=== PATIENT | female | born 1970 | race Caucasian/White ===

== ENCOUNTER 2016-12-02 08:37 | Day surgery (SDC) | payer MEDICAID ==
[~2016-12-02 08:37] MED LIST: EPINEPHRINE INJ 1 MG/10 ML DISP.SYRIN ONE; FLUMAZENIL INJ 0.5 MG/5 ML VIAL IV ONE; GLUCAGON,HUMAN RECOMB 1 MG INJ ONE; GLYCOPYRROLATE INJ 0.4 MG/2 ML VIAL ONE; LIDOCAINE 2% JELLY 30 ML TUBE ONE; NALOXONE HCL INJ/PF 0.4 MG/1 ML SDV ONE; ONDANSETRON HCL INJ/PF 4 MG/2 ML SDV ONE; PROMETHAZINE HCL INJ 25 MG/1 ML VIAL ONE
[2016-12-02] MEDS: MIDAZOLAM 2 MG/2 ML INJ ONE ×2 (09:25→09:35)
[2016-12-02] MEDS: FENTANYL CITRATE INJ/PF 100 MCG/2 ML AMPUL ONE ×2 (09:29→09:40)
[2016-12-02 10:57] LABS: ABSOLUTE BASOPHILS # (AUTO) 0.1 10^3/uL (0.0-0.2); ABSOLUTE EOSINOPHILS # (AUTO) 0.2 10^3/uL (0.0-0.6); ABSOLUTE LYMPHOCYTES (AUTO) 2.6 10^3/uL (0.5-4.7); ABSOLUTE MONOCYTES (AUTO) 0.6 10^3/uL (0.1-1.4); ABSOLUTE NEUT (AUTO) 4.8 10^3/uL (1.7-8.2); BASOPHILS % (AUTO) 0.9 % (0-2); EOSINOPHILS % (AUTO) 2.2 % (0-6); HEMATOCRIT 39.7 % (36.0-47.0); HEMOGLOBIN 13.4 g/dL (12.0-15.5); HGB HCT DIFFERENCE 0.5; LYMPHOCYTES % (AUTO) 31.5 % (13-45); MEAN CORPUSCULAR HEMOGLOBIN 31.3 pg (27.0-33.4); MEAN CORPUSCULAR HGB CONC 33.9 g/dL (32.0-36.0); MEAN CORPUSCULAR VOLUME 93 fl (80-97); MONOCYTES % (AUTO) 7.5 % (3-13); RED BLOOD COUNT 4.29 10^6/uL (3.72-5.28); RED CELL DISTRIBUTION WIDTH 13.8 % (11.5-14.0); SEGMENTED NEUTROPHILS % (AUTO) 57.9 % (42-78); WHITE BLOOD COUNT 8.2 10^3/uL (4.0-10.5)
[2016-12-02 11:02] VITALS: BP 112/56
--- NOTE | 2016-12-02 11:51 | DISCHARGE SUMMARY E ---
Discharge Summary NAME: AUSTIN MCCARTY : 1970 AGE: 46Y ADMITTED: 12/02/2016 DISCHARGED: 12/02/2016 PROCEDURES: Colonoscopy, biopsy. HISTORY: A 46-year-old female with rectal bleeding. The patient has had cholecystectomy, 3 C-sections, and hysterectomy. The patient underwent a colon exam showing diminutive rectosigmoid polyps, external hemorrhoids, redundant colon, and adequate prep. DISCHARGE PLAN: Awaiting biopsy. Hold aspirin. Consider followup colonoscopy 1 year with better prep. DICTATING PHYSICIAN: JESSICA CABRERA M.D. [id number] PHY#: [id number] ID: [id number] JOB#: [id number] ACCT: [id number] cc:JESSICA CABRERA M.D. >
--- NOTE | 2016-12-02 12:05 | OPERATIVE REPORT E ---
Operative Report NAME: AUSTIN MCCARTY : 1970 AGE: 46Y DATE OF SURGERY: 12/02/2016 ROOM: PREOPERATIVE DIAGNOSIS: Rectal bleeding. POSTOPERATIVE DIAGNOSES: 1. External hemorrhoids. 2. Small rectosigmoid diminutive polyps. 3. Redundant colon. 4. Inadequate prep. PROCEDURE: Colonoscopy. SURGEON: JESSICA CABRERA M.D. ANESTHESIA: Versed 4 mg and fentanyl 100 mcg. TISSUE REMOVED OR ALTERED: Biopsy rectosigmoid polyps. PROCEDURE: Rectal exam: External hemorrhoids. At the rectosigmoid junction, there is a small polyp, 2 mm, biopsy obtained. Rectal area shows a 2 mm polyp, biopsy obtained. Descending colon: Redundant, normal. Transverse colon: Redundant, normal. Ascending colon: Redundant, normal. Cecum: Wide, dilated, normal. Scope withdrawn cecum, ascending, transverse, descending, sigmoid, all the way to the rectum. CONCLUSION: Diminutive rectosigmoid polyps. Patient tolerated procedure well. Consider followup colonoscopy after 1-2 years with better prep. Awaiting histopathology. DICTATING PHYSICIAN: JESSICA CABRERA M.D. [id number] PHY#: [id number] ID: [id number] JOB#: [id number] ACCT: [id number] cc:JESSICA CABRERA M.D. >
== END 2016-12-02 11:30 | disposition home or self-care (01) ==
LOC: END 08:37
PROVIDERS: ATTEND Specialist
PROC: 0DBN8ZX Excision of Sigmoid Colon, Via Natural or Artificial Opening Endoscopic, Diagnostic (ICD-10-PCS; 2016-12-02)
PROC: 0DBP8ZX Excision of Rectum, Via Natural or Artificial Opening Endoscopic, Diagnostic (ICD-10-PCS; principal; 2016-12-02 09:00)
DX: D12.7 Benign neoplasm of rectosigmoid junction (principal); K64.4 Residual hemorrhoidal skin tags; Q43.8 Other specified congenital malformations of intestine; K62.5 Hemorrhage of anus and rectum; J44.9 Chronic obstructive pulmonary disease, unspecified; F17.210 Nicotine dependence, cigarettes, uncomplicated; I10 Essential (primary) hypertension; E78.00 Pure hypercholesterolemia, unspecified; G47.00 Insomnia, unspecified; Z79.52 Long term (current) use of systemic steroids
CPT/HCPCS: 45380; 36415; 85025; 88305 ×2; J2250; J3010; J1610; J3490 ×2; J2405; J0171; J2310; J2550

== ENCOUNTER → 2016-12-15 | Outpatient (CLI) | payer MEDICAID ==
[2016-12-20 07:18] LABS: DEAMIDATED GLIADIN IGA AB 3 units (0-19); DEAMIDATED GLIADIN IGG AB 3 units (0-19); IMMUNOGLOBULIN A 2 119 mg/dL (87-352); T-TRANSGLUTAMINASE (TTG) IGG <2 U/mL (0-5)
== END ==
LOC: OD 10:18
PROVIDERS: ATTEND Specialist
DX: K90.0 Celiac disease (principal)
CPT/HCPCS: 36415; 83520

== ENCOUNTER 2019-05-23 15:14 | Emergency (ER) | payer MEDICAID ==
[2019-05-23 15:20] VITALS: BP 159/82
[2019-05-23] MEDS ORDERED: KETOROLAC TROMETHAMINE INJ/PF 30 MG/1 ML SDV IV ONE (15:49)
[2019-05-23] MEDS ORDERED: ONDANSETRON HCL INJ/PF 4 MG/2 ML SDV IV ONE (15:53)
--- NOTE | 2019-05-23 15:54 | ER Document Report ---
ED Medical Screen (RME) - General Chief Complaint: Flank Pain Stated Complaint: FLANK PAIN Time Seen by Provider: 05/23/19 15:43 Primary Care Provider: JESSICA CABRERA MD [Primary Care Provider] - Follow up as needed TRAVEL OUTSIDE OF THE [place] IN LAST 30 DAYS: No - HPI Notes: 05/23/19 15:50 Patient is a 48-year-old female with a history of chronic back pain who presents complaining of right lateral low back/flank pain that began 3 days ago and has been worsening. Pain does not radiate. Pain is described as a sharp pain. Patient states that she was sent by urgent care for evaluation for possible kidney stone versus infection. She did have blood in her urine at the clinic today. She is able to eat and drink without difficulty. She is having normal bowel movements. Denies BRIGGS, fever, neck pain, URI, CP, SOB, Abd pain, dysuria, or rash. I have treated and performed a rapid initial assessment of this patient. A comprehensive ED assessment and evaluation of the patient, analysis of test results and completion of medical decision making process will be conducted by additional ED providers. PHYSICAL EXAMINATION: GENERAL: Well-appearing, well-nourished and in no acute distress. A&Ox4. Answers questions appropriately. LUNGS: Breath sounds clear to auscultation bilaterally and equal. No wheezes rales or rhonchi. HEART: Regular rate and rhythm without murmurs, rubs, gallops. ABDOMEN: Soft, nondistended abdomen. No guarding, no rebound. Normal bowel sounds present. + mild left CVA tenderness vs MS left low back. Grossly non- tender abd otherwise (limited in chair, however). - Related Data Allergies/Adverse Reactions: No Known Allergies Allergy (Verified 05/23/19 15:15) Past Medical History - Social History Frequency of alcohol use: None Drug Abuse: None - Past Medical History Cardiac Medical History: Reports: Hx Hypertension Denies: Hx Coronary Artery Disease, Hx Heart Attack Pulmonary Medical History: Reports: Hx Pneumonia Denies: Hx Asthma, Hx Bronchitis, Hx COPD Neurological Medical History: Denies: Hx Cerebrovascular Accident, Hx Seizures Renal/ Medical History: Denies: Hx Peritoneal Dialysis Musculoskeltal Medical History: Denies Hx Arthritis Past Surgical History: Reports: Hx Section - x3, Hx Cholecystectomy. Denies: Hx Hysterectomy, Hx Pacemaker Physical Exam - Vital signs Vitals: Temp Pulse Resp BP Pulse Ox 97.6 F 58 L 15 159/82 H 99 05/23/19 15:18 05/23/19 15:18 05/23/19 15:18 05/23/19 15:18 05/23/19 15:18 Course - Vital Signs Vital signs: Temp Pulse Resp BP Pulse Ox 97.6 F 58 L 15 159/82 H 99 05/23/19 15:18 05/23/19 15:18 05/23/19 15:18 05/23/19 15:18 05/23/19 15:18 Doctor's Discharge - Discharge Referrals: JESSICA CABRERA MD [Primary Care Provider] - Follow up as needed
[2019-05-23 16:32] LABS: ABSOLUTE BASOPHILS # (AUTO) 0.1 10^3/uL (0.0-0.2); ABSOLUTE EOSINOPHILS # (AUTO) 0.1 10^3/uL (0.0-0.6); ABSOLUTE NEUT (AUTO) 3.9 10^3/uL (1.7-8.2); EOSINOPHILS % (AUTO) 1.7 % (0-6); HEMOGLOBIN 14.7 g/dL (12.0-15.5); TOTAL CELLS COUNTED % (AUTO) 100 %
[2019-05-23 16:33] LABS: APPEARANCE,URINE CLEAR; BILIRUBIN,URINE NEGATIVE (NEGATIVE); COLOR,URINE YELLOW; GLUCOSE, URINE NEGATIVE (NEGATIVE); KETONES,URINE NEGATIVE (NEGATIVE); LEUKOCYTE ESTERASE,URINE NEGATIVE (NEGATIVE); NITRITE,URINE NEGATIVE (NEGATIVE); PROTEIN,URINE NEGATIVE (NEGATIVE); UROBILINOGEN,URINE NEGATIVE mg/dL (<2.0)
[2019-05-23 16:38] LABS: ABSOLUTE LYMPHOCYTES (AUTO) 3.9 10^3/uL (0.5-4.7); ABSOLUTE MONOCYTES (AUTO) 0.6 10^3/uL (0.1-1.4); BASOPHILS % (AUTO) 1.1 % (0-2); HEMATOCRIT 42.4 % (36.0-47.0); LYMPHOCYTES % (AUTO) 45.4 % (13-45); MEAN CORPUSCULAR HEMOGLOBIN 32.2 pg (27.0-33.4); MEAN CORPUSCULAR HGB CONC 34.7 g/dL (32.0-36.0); MEAN CORPUSCULAR VOLUME 93 fl (80-97); MONOCYTES % (AUTO) 6.5 % (3-13); PLATELET COUNT 241 10^3/uL (150-450); RED BLOOD COUNT 4.56 10^6/uL (3.72-5.28); RED CELL DISTRIBUTION WIDTH 14.1 % (11.5-14.0); SEGMENTED NEUTROPHILS % (AUTO) 45.3 % (42-78); WHITE BLOOD COUNT 8.5 10^3/uL (4.0-10.5)
[2019-05-23 16:45] LABS: ALANINE AMINOTRANSFERASE 17 U/L (9-52); ALBUMIN 4.7 g/dL (3.5-5.0); ALKALINE PHOSPHATASE 82 U/L (38-126); ANION GAP 7 (5-19); ASPARTATE AMINO TRANSFERASE 23 U/L (14-36); BILIRUBIN,DIRECT 0.2 mg/dL (0.0-0.4); BILIRUBIN,TOTAL 0.5 mg/dL (0.2-1.3); BLOOD UREA NITROGEN 10 mg/dL (7-20); CALCIUM 9.6 mg/dL (8.4-10.2); CARBON DIOXIDE 27 mmol/L (22-30); CHLORIDE 107 mmol/L (98-107); GLUCOSE 84 mg/dL (75-110); POTASSIUM 4.1 mmol/L (3.6-5.0); TOTAL PROTEIN 7.4 g/dL (6.3-8.2)
--- NOTE | 2019-05-23 16:56 | RADIOLOGY REPORT (SQ) ---
EXAM DESCRIPTION: CT ABD/PELVIS NO ORAL OR IV COMPLETED DATE/TIME: 05/23/2019 4:42 pm REASON FOR STUDY: Rt flank pain COMPARISON: None. TECHNIQUE: CT scan of the abdomen and pelvis performed without intravenous or oral contrast. Images reviewed with lung, soft tissue, and bone windows. Reconstructed coronal and sagittal MPR images revi ewed. All images stored on PACS. All CT scanners at this facility use dose modulation, iterative reconstruction, and/or weight based d osing when appropriate to reduce radiation dose to as low as reasonably achievable (ALARA). [facility]: Dose Right [facility]: CareDose [facility]: Dose Right [facility]: Teradose 4D [facility]: [employer] Technologies RADIATION DOSE: mGy. LIMITATIONS: None. FINDINGS: LOWER CHEST: No significant findings. No nodules or infiltrates. NON-CONTRASTED LIVER, SPLEEN, ADRENALS: Evaluation limited by lack of IV contrast. No identified sign ificant masses. PANCREAS: No masses. No peripancreatic inflammatory changes. GALLBLADDER: Surgically absent. RIGHT KIDNEY AND URETER: No suspicious masses. Assessment limited by lack of IV contrast. No signif icant calcifications. No hydronephrosis or hydroureter. LEFT KIDNEY AND URETER: No suspicious masses. Assessment limited by lack of IV contrast. No signifi cant calcifications. No hydronephrosis or hydroureter. AORTA AND RETROPERITONEUM: No aneurysm. No retroperitoneal masses or adenopathy. BOWEL AND PERITONEAL CAVITY: There is considerable retained stool. No obvious bowel mass or inflamma tion. APPENDIX: Normal. PELVIS, BLADDER, AND ABDOMINAL WALL:The urinary bladder is normal. There is a 6 mm calcification pos terolateral to the bladder on image 69. This does not appear to be in the ureter and certainly there is no evidence of ureteral obstruction. BONES: No significant findings. OTHER: No other significant finding. IMPRESSION: Constipation. No urinary pathology is identified. No acute finding in the abdomen or p francis. COMMENT: Quality ID # [id number]: Final reports with documentation of one or more dose reduction techniques (e.g., Automated exposure control, adjustment of the mA and/or kV according to patient size, use of iterative reconstruction technique) TECHNICAL DOCUMENTATION: JOB ID: [id number] [employer]- All Rights Reserved Reading location - IP/workstation name: [email or web address]
--- NOTE | 2019-05-23 19:02 | ER Document Report ---
ED General - General Chief Complaint: Flank Pain Stated Complaint: FLANK PAIN Time Seen by Provider: 05/23/19 15:43 Primary Care Provider: JESSICA CABRERA MD [EMERITUS] - Follow up as needed Information source: Patient TRAVEL OUTSIDE OF THE [place] IN LAST 30 DAYS: No - HPI Notes: Patient is a 48-year-old female with a history of chronic back pain who presents complaining of right lateral low back/flank pain that began 3 days ago and has been worsening. Pain does not radiate. Pain is described as a sharp pain. Patient states that she was sent by urgent care for evaluation for possible kidney stone versus infection. She did have blood in her urine at the clinic today. She is able to eat and drink without difficulty. She is having normal bowel movements. Denies BRIGGS, fever, neck pain, URI, CP, SOB, Abd pain, dysuria, or rash. No history of kidney stones. The patient denies any significant injury to the back but states pain is somewhat worse when she moves. The patient does report chronic constipation having a bowel movement once per week which is not unusual. The patient denies any fever or chills. No numbness or paresthesia or pain radiating down the leg. The patient describes some crampy abdominal pain intermittently. No current abdominal pain. Patient reports 20 months ago she had a colonoscopy and endoscopy which showed mild gastritis. The patient has a history of cholecystectomy and x3. Last menstrual period was a year and a half ago she is postmenopausal and has a history of a tubal ligation. - Related Data Allergies/Adverse Reactions: No Known Allergies Allergy (Verified 05/23/19 15:15) Past Medical History - General Information source: Patient - Social History Smoking Status: Current Every Day Smoker Frequency of alcohol use: None Drug Abuse: None Lives with: Family Family History: None Patient has suicidal ideation: No Patient has homicidal ideation: No - Past Medical History Cardiac Medical History: Reports: Hx Hypertension Denies: Hx Coronary Artery Disease, Hx Heart Attack Pulmonary Medical History: Reports: Hx Pneumonia Denies: Hx Asthma, Hx Bronchitis, Hx COPD Neurological Medical History: Denies: Hx Cerebrovascular Accident, Hx Seizures Renal/ Medical History: Denies: Hx Peritoneal Dialysis Musculoskeletal Medical History: Denies Hx Arthritis Past Surgical History: Reports: Hx Section - x3, Hx Cholecystectomy. Denies: Hx Hysterectomy, Hx Pacemaker Review of Systems - Review of Systems -: Yes All other systems reviewed and negative Physical Exam - Vital signs Vitals: Temp Pulse Resp BP Pulse Ox 97.6 F 58 L 15 159/82 H 99 05/23/19 15:18 05/23/19 15:18 05/23/19 15:18 05/23/19 15:18 05/23/19 15:18 - Notes Notes: PHYSICAL EXAMINATION: GENERAL: Well-appearing, well-nourished and in no acute distress. HEAD: Atraumatic, normocephalic. EYES: Pupils equal round and reactive to light, extraocular movements intact, conjunctiva are normal. ENT: Nares patent, oropharynx clear without exudates. Moist mucous membranes. NECK: Normal range of motion, supple without lymphadenopathy LUNGS: Breath sounds clear to auscultation bilaterally and equal. No wheezes rales or rhonchi. HEART: Regular rate and rhythm without murmurs ABDOMEN: Soft, nontender, nondistended abdomen. No guarding, no rebound. No masses appreciated. Lower midline surgical scar which is well-healed. Female : deferred Musculoskeletal: Normal range of motion, no pitting or edema. No cyanosis. Patient has pain appreciated through the right lower posterior pelvis region more paraspinal muscular region. There is no radiation down the leg. No actual pain over the CVA region bilaterally. No significant midline pain. No crepitance or erythema or or bony deformity. Pain seems worse with motion. NEUROLOGICAL: Cranial nerves grossly intact. Normal speech, normal gait. Normal sensory, motor exams. No saddle anesthesia or motor deficits. PSYCH: Normal mood, normal affect. SKIN: Warm, Dry, normal turgor, no rashes or lesions noted. Course - Re-evaluation Re-evalutation: 05/23/19 19:02 CT scan was negative for renal stone or other abnormality, but did show constipation. Patient had mild microscopic hematuria, but no evidence for infec tion. 05/23/19 19:03 Patient denied having any recent exercise or injury. Kidney function and lab s tudies were completely normal. I question if the back pain may be more musculoskeletal given the location and prior history. Hematuria is microscopic, but will need to be followed up, and patient is aware of this. Patient will also need something for constipation. 05/23/19 19:06 - Vital Signs Vital signs: Temp Pulse Resp BP Pulse Ox 97.6 F 58 L 15 159/82 H 99 05/23/19 15:18 05/23/19 15:18 05/23/19 15:18 05/23/19 15:18 05/23/19 15:18 - Laboratory Result Diagrams: 05/23/19 16:12 05/23/19 16:12 Laboratory results interpreted by me: 05/23/19 05/23/19 16:12 16:12 RDW 14.1 H Lymphocytes % 45.4 H Urine Blood LARGE H Discharge - Discharge Clinical Impression: Back strain Qualifiers: Encounter type: initial encounter Qualified Code(s): S39.012A - Strain of muscle, fascia and tendon of lower back, initial encounter Constipation Qualifiers: Constipation type: slow transit constipation Qualified Code(s): K59.01 - Slow transit constipation Hematuria Qualifiers: Hematuria type: unspecified type Qualified Code(s): R31.9 - Hematuria, unspecified Condition: Stable Disposition: HOME, SELF-CARE Instructions: Hematuria ([facility]), Constipation ([facility]), Low Back Pain ([facility]), Stretching Exercises for the Back ([facility]) Additional Instructions: You need a follow-up urinalysis to ensure that the microscopic hematuria has resolved. If not resolved, then you need follow-up with urology. Avoid anti- inflammatories, as they may cause hematuria. You may take Tylenol regularly as needed for pain. Take MiraLAX regularly as needed for constipation. Prescriptions: Cyclobenzaprine HCl [Flexeril 10 mg Tablet] 10 mg PO TIDP PRN #20 tab PRN Reason: Polyethylene Glycol 3350 [Miralax] 1 cap PO DAILY #527 powder Referrals: JESSICA CABRERA MD [EMERITUS] - Follow up in 1 month
[2019-05-23] MEDS ORDERED: MAGNESIUM HYDROXIDE SUSP 30 ML UDCUP PO ONE (19:14)
== END 2019-05-23 19:35 | disposition home or self-care (01) ==
LOC: ER 15:14
DX: S39.012A Strain of muscle, fascia and tendon of lower back, initial encounter (principal); K59.01 Slow transit constipation; R31.9 Hematuria, unspecified; X58.XXXA Exposure to other specified factors, initial encounter; G89.29 Other chronic pain; I10 Essential (primary) hypertension; Z90.49 Acquired absence of other specified parts of digestive tract
CPT/HCPCS: 99284; 96374; 96375; 36415; 83690; 85025; 80053; 81001; 74176; J1885; J3490; J2405

== ENCOUNTER 2019-05-25 08:58 | Emergency (ER) | payer MEDICAID ==
--- NOTE | 2019-05-25 09:44 | ER Document Report ---
ED Medical Screen (RME) - General Chief Complaint: Headache Stated Complaint: BLOOD PRESSURE PROBLEMS, HEADACHE Time Seen by Provider: 05/25/19 09:17 Mode of Arrival: Ambulatory Information source: Patient Notes: This 48-year-old female returns to the emergency department with multiple complaints. She gives history of recent UTI blood, hematuria, right flank pain. She was evaluated for this on May 23 by urgent care and in the ED. She was treated for constipation and Flexeril for flank pain. She reports since then she took mag citrate and gave herself an enema and last night she had a large bowel movements but her blood pressure went very high and it scared her. Patient reports that she had a headache at that time also. Headache has subsided somewhat. Patient has a history of constipation. Patient seems very anxious. Abdomen soft, no pain with palpation. I have greeted and performed a rapid initial assessment of this patient. A comprehensive ED assessment and evaluation of the patient, analysis of test results and completion of the medical decision making process will be conducted by additional ED providers. Dictation of this chart was performed using voice recognition software; therefore, there may be some unintended grammatical errors. TRAVEL OUTSIDE OF THE [place] IN LAST 30 DAYS: No - Related Data Allergies/Adverse Reactions: No Known Allergies Allergy (Verified 05/25/19 09:00) Past Medical History - Social History Chew tobacco use (# tins/day): No Frequency of alcohol use: None Drug Abuse: None - Past Medical History Cardiac Medical History: Reports: Hx Hypertension Denies: Hx Coronary Artery Disease, Hx Heart Attack Pulmonary Medical History: Reports: Hx Pneumonia Denies: Hx Asthma, Hx Bronchitis, Hx COPD Neurological Medical History: Denies: Hx Cerebrovascular Accident, Hx Seizures Renal/ Medical History: Denies: Hx Peritoneal Dialysis Musculoskeltal Medical History: Denies Hx Arthritis Past Surgical History: Reports: Hx Section - x3, Hx Cholecystectomy. Denies: Hx Hysterectomy, Hx Pacemaker Physical Exam - Vital signs Vitals: Temp Pulse Resp BP Pulse Ox 97.6 F 57 L 16 171/92 H 98 05/25/19 09:06 05/25/19 09:06 05/25/19 09:06 05/25/19 09:06 05/25/19 09:06 Course - Vital Signs Vital signs: Temp Pulse Resp BP Pulse Ox 97.6 F 57 L 16 171/92 H 98 05/25/19 09:06 05/25/19 09:06 05/25/19 09:06 05/25/19 09:06 05/25/19 09:06
[2019-05-25 10:10] LABS: ABSOLUTE BASOPHILS # (AUTO) 0.1 10^3/uL (0.0-0.2); ABSOLUTE EOSINOPHILS # (AUTO) 0.1 10^3/uL (0.0-0.6); ABSOLUTE LYMPHOCYTES (AUTO) 2.4 10^3/uL (0.5-4.7); ABSOLUTE MONOCYTES (AUTO) 0.4 10^3/uL (0.1-1.4); ABSOLUTE NEUT (AUTO) 3.6 10^3/uL (1.7-8.2); BASOPHILS % (AUTO) 0.9 % (0-2); EOSINOPHILS % (AUTO) 1.5 % (0-6); HEMATOCRIT 45.2 % (36.0-47.0); HEMOGLOBIN 15.5 g/dL (12.0-15.5); LYMPHOCYTES % (AUTO) 36.5 % (13-45); MEAN CORPUSCULAR HGB CONC 34.2 g/dL (32.0-36.0); MEAN CORPUSCULAR VOLUME 94 fl (80-97); MONOCYTES % (AUTO) 6.3 % (3-13); PLATELET COUNT 271 10^3/uL (150-450); RED BLOOD COUNT 4.82 10^6/uL (3.72-5.28); RED CELL DISTRIBUTION WIDTH 14.1 % (11.5-14.0); SEGMENTED NEUTROPHILS % (AUTO) 54.8 % (42-78); TOTAL CELLS COUNTED % (AUTO) 100 %; WHITE BLOOD COUNT 6.5 10^3/uL (4.0-10.5)
[2019-05-25 10:16] LABS: APPEARANCE,URINE CLEAR; BILIRUBIN,URINE NEGATIVE (NEGATIVE); COLOR,URINE STRAW; GLUCOSE, URINE NEGATIVE (NEGATIVE); KETONES,URINE NEGATIVE (NEGATIVE); LEUKOCYTE ESTERASE,URINE NEGATIVE (NEGATIVE); NITRITE,URINE NEGATIVE (NEGATIVE); PROTEIN,URINE NEGATIVE (NEGATIVE); URINE SPECIFIC GRAVITY 1.002; UROBILINOGEN,URINE NEGATIVE mg/dL (<2.0)
[2019-05-25 10:28] LABS: ALBUMIN 5.2 g/dL (3.5-5.0); ALKALINE PHOSPHATASE 87 U/L (38-126); ANION GAP 8 (5-19); ASPARTATE AMINO TRANSFERASE 26 U/L (14-36); BILIRUBIN,DIRECT 0.2 mg/dL (0.0-0.4); BILIRUBIN,TOTAL 0.6 mg/dL (0.2-1.3); BLOOD UREA NITROGEN 8 mg/dL (7-20); CALCIUM 10.4 mg/dL (8.4-10.2); CARBON DIOXIDE 31 mmol/L (22-30); CHLORIDE 103 mmol/L (98-107); GLUCOSE 100 mg/dL (75-110); POTASSIUM 4.4 mmol/L (3.6-5.0); TOTAL PROTEIN 8.4 g/dL (6.3-8.2)
--- NOTE | 2019-05-25 12:14 | RADIOLOGY REPORT (SQ) ---
EXAM DESCRIPTION: U/S RETROPERITON (RENAL/AORTA) COMPLETED DATE/TIME: 05/25/2019 11:16 am REASON FOR STUDY: right flank pain, hematuria COMPARISON: None. TECHNIQUE: Dynamic and static grayscale images acquired of the kidneys and bladder and recorded on P ACS. Additional selected color Doppler and spectral images recorded. LIMITATIONS: None. FINDINGS: RIGHT KIDNEY: Normal size. Normal echogenicity. No solid or suspicious masses. No hydronep hrosis. No calcifications. LEFT KIDNEY: Normal size. Normal echogenicity. No solid or suspicious masses. No hydronephrosis. No calcifications. BLADDER: Empty. OTHER FINDINGS: No other significant finding. IMPRESSION: NORMAL RENAL ULTRASOUND. TECHNICAL DOCUMENTATION: JOB ID: [id number] [employer]- All Rights Reserved Reading location - IP/workstation name: [email or web address]
--- NOTE | 2019-05-25 12:52 | RADIOLOGY REPORT (SQ) ---
EXAM DESCRIPTION: KUB/ABDOMEN (SINGLE VIEW) COMPLETED DATE/TIME: 05/25/2019 12:13 pm REASON FOR STUDY: constipation, bloating COMPARISON: None. NUMBER OF VIEWS: One view. TECHNIQUE: Supine radiographic image of the abdomen acquired. LIMITATIONS: None. FINDINGS: BOWEL GAS PATTERN: Normal bowel gas pattern. No dilated loops. CALCIFICATIONS: No suspicious calcifications. SOFT TISSUES: No gross mass or suggestion of organomegaly. HARDWARE: Surgical clips in the right upper quadrant. BONES: No acute fracture. No worrisome bone lesions. OTHER: No other significant finding. IMPRESSION: NO RADIOGRAPHIC EVIDENCE FOR ACUTE ABDOMINAL DISEASE. TECHNICAL DOCUMENTATION: JOB ID: [id number] [employer]- All Rights Reserved Reading location - IP/workstation name: [email or web address]
--- NOTE | 2019-05-25 13:25 | ER Document Report ---
ED General - General Chief Complaint: Headache Stated Complaint: BLOOD PRESSURE PROBLEMS, HEADACHE Time Seen by Provider: 05/25/19 09:17 Primary Care Provider: LINDA PINK MD [ACTIVE STAFF] - Follow up in 1 week Mode of Arrival: Ambulatory TRAVEL OUTSIDE OF THE [place] IN LAST 30 DAYS: No - HPI Notes: 48 year old female to the ED with multiple complaints. She states that she has had right sided flank pain for the past two days, constipation, elevated blood pressure and headache. States that two days ago, she presented to the ED and Urgent Care with right sided flank pain. She recently had a UTI with hematuria. She was diagnosed with Constipation and a back strain. States she went home and took an enema and magnesium citrate. States a couple hours after taking the mag citrate, she had all over abdominal cramping and several large bowel mo vements. States during that period, she had elevated blood pressure and a headache. States that this concerned her so she decided to come back to the ER. Admits to a history of HTN, but she took herself off of HTN meds after she had lost some weight. Used to take Norvasc. Has not seen her PCM in one year. States that her flank pain has currently resolved and she only has a minor headache. - Related Data Allergies/Adverse Reactions: No Known Allergies Allergy (Verified 05/25/19 09:00) Past Medical History - General Information source: Patient - Social History Smoking Status: Current Every Day Smoker Chew tobacco use (# tins/day): No Frequency of alcohol use: None Drug Abuse: None Family History: None, Reviewed & Not Pertinent Patient has suicidal ideation: No Patient has homicidal ideation: No - Past Medical History Cardiac Medical History: Reports: Hx Hypertension Denies: Hx Coronary Artery Disease, Hx Heart Attack Pulmonary Medical History: Reports: Hx Pneumonia Denies: Hx Asthma, Hx Bronchitis, Hx COPD Neurological Medical History: Denies: Hx Cerebrovascular Accident, Hx Seizures Renal/ Medical History: Denies: Hx Peritoneal Dialysis Musculoskeletal Medical History: Denies Hx Arthritis Past Surgical History: Reports: Hx Section - x3, Hx Cholecystectomy. Denies: Hx Hysterectomy, Hx Pacemaker Review of Systems - Review of Systems Constitutional: denies: Chills, Fever EENT: denies: Blurred vision, Double vision, Nose congestion, Nose discharge, Throat pain Cardiovascular: denies: Chest pain, Palpitations, Dyspnea, Syncope, Dizziness, Lightheaded Respiratory: denies: Cough, Short of breath Gastrointestinal: Constipation. denies: Diarrhea, Nausea, Vomiting Genitourinary: Flank pain, Hematuria. denies: Burning, Dysuria, Frequency Musculoskeletal: See HPI, Back pain. denies: Neck pain Skin: No symptoms reported Hematologic/Lymphatic: No symptoms reported Neurological/Psychological: No symptoms reported -: Yes All other systems reviewed and negative Physical Exam - Vital signs Vitals: Temp Pulse Resp BP Pulse Ox 97.6 F 57 L 16 171/92 H 98 05/25/19 09:06 05/25/19 09:06 05/25/19 09:06 05/25/19 09:06 05/25/19 09:06 Interpretation: Hypertensive - General General appearance: Appears well In distress: None - HEENT Head: Normocephalic, Atraumatic Eyes: Normal Pupils: PERRL - Respiratory Respiratory status: No respiratory distress Chest status: Nontender Breath sounds: Normal Chest palpation: Normal - Cardiovascular Rhythm: Regular Heart sounds: Normal auscultation Murmur: No - Abdominal Inspection: Normal Distension: No distension Bowel sounds: Normal Tenderness: Nontender Organomegaly: No organomegaly - Back Back: Normal, Nontender. No: CVA tenderness - Neurological Neuro grossly intact: Yes Cognition: Normal Orientation: AAOx4 [place] Coma Scale Eye Opening: Spontaneous [place] Coma Scale Verbal: Oriented [place] Coma Scale Motor: Obeys Commands [place] Coma Scale Total: 15 Speech: Normal Cranial nerves: Normal. No: Facial palsy, Forehead sparing, Gaze palsy, Sensory deficit, Tongue deviation Cerebellar coordination: Normal. 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 No: Pronator drift Sensory: Normal - Psychological Associated symptoms: Normal affect, Normal mood - Skin Skin Temperature: Warm Skin Moisture: Dry Skin Color: Normal Course - Re-evaluation Re-evalutation: Impression: Flank pain, Headache, HTN. Patient is doing well. She no longer has a headache. Noted imaging studies which are reassuring. Noted labwork which is also reassuring. She has a soft, non tender abdomen. She has no focal neuro deficitis. Noted elevated BP most consistent with her history of HTN. Will start back on HTN meds. Have encouraged her to see her PCM without fail. She agrees with the plan. Encouraged to return if her symptoms worsen at all. - Vital Signs Vital signs: Temp Pulse Resp BP Pulse Ox 97.6 F 57 L 12 153/99 H 98 05/25/19 09:06 05/25/19 09:06 05/25/19 17:01 05/25/19 17:00 05/25/19 17:01 - Laboratory Result Diagrams: 05/25/19 09:42 05/25/19 09:42 Laboratory results interpreted by me: 05/25/19 05/25/19 05/25/19 09:42 09:42 09:42 RDW 14.1 H Carbon Dioxide 31 H Calcium 10.4 H Total Protein 8.4 H Albumin 5.2 H Urine Blood MODERATE H - Diagnostic Test Radiology reviewed: Image reviewed, Reports reviewed Discharge - Discharge Clinical Impression: Acute flank pain Headache Qualifiers: Headache type: unspecified Headache chronicity pattern: acute headache Intractability: not intractable Qualified Code(s): R51 - Headache Hypertension Qualifiers: Hypertension type: essential hypertension Qualified Code(s): I10 - Essential (primary) hypertension Condition: Stable Disposition: HOME, SELF-CARE Instructions: Abdominal Pain ([facility]), Headache ([facility]), High Blood Pressure ([facility]) Additional Instructions: FOLLOW UP WITH YOUR PRIMARY CARE PROVIDER WITHOUT FAIL ON MONDAY. FOLLOW UP WITH YOUR GI SPECIALIST. START NORVASC FOR YOUR BLOOD PRESSURE, TAKE REGLAN FOR ANY FURTHER ABDOMINAL PAIN/NAUSEA. PUSH FLUIDS. RETURN IF SYMPTOMS WORSENING, SUCH FEVERS, WORSENING ABD PAIN, HEADACHE, CHEST PAIN, OR SHORTNESS OF BREATH. Prescriptions: Amlodipine Besylate [Norvasc 5 mg Tablet] 5 mg PO DAILY #30 tablet Metoclopramide HCl [Reglan] 5 mg PO Q8H PRN #9 tablet PRN Reason: Referrals: LINDA PINK MD [ACTIVE STAFF] - Follow up in 1 week
[2019-05-25] MEDS ORDERED: METOCLOPRAMIDE HCL INJ/PF 10 MG/2 ML SDV IV ONE (14:01)
[2019-05-25] MEDS ORDERED: NORMAL SALINE 1000 ML 1,000 ML IV ONE (14:01)
[2019-05-25] MEDS ORDERED: DIPHENHYDRAMINE HCL 50 MG/ML VIAL IV ONE (14:02)
[2019-05-25] MEDS ORDERED: AMLODIPINE BESYLATE 5 MG TABLET PO ONE (15:05)
[2019-05-25 17:14] VITALS: BP 153/99
== END 2019-05-25 17:14 | disposition home or self-care (01) ==
LOC: ER 08:58
DX: R10.9 Unspecified abdominal pain (principal); R51 Headache; I10 Essential (primary) hypertension; K59.00 Constipation, unspecified; F17.200 Nicotine dependence, unspecified, uncomplicated
CPT/HCPCS: 99284; 96361; 96374; 96375; 36415; 85025; 80053; 81001; 74018; 76770; J1200; J2765; J3490; J7030